=== PATIENT | female | born 1955 | race Two or more races ===

== ENCOUNTER 2019-03-04 01:24 | Inpatient (IN) | payer BC, OTHER ==
[~2019-03-04] VITALS: Ht 160 cm; Wt 67.5 kg
[2019-03-06 07:43] VITALS: BP 157/81
== END 2019-03-06 14:48 | disposition home or self-care (01) | DRG 694 ==
LOC: ED 04:22 → EDIP 04:25 → 3NE 06:40
PROVIDERS: ADMIT Family Medicine; ATTEND Family Medicine
PROC: 0T9B70Z Drainage of Bladder with Drainage Device, Via Natural or Artificial Opening (ICD-10-PCS; principal; 2019-03-04)
DX: N13.2 Hydronephrosis with renal and ureteral calculous obstruction (principal); E78.5 Hyperlipidemia, unspecified; E78.00 Pure hypercholesterolemia, unspecified; K44.9 Diaphragmatic hernia without obstruction or gangrene; K57.90 Diverticulosis of intestine, part unspecified, without perforation or abscess without bleeding; E03.9 Hypothyroidism, unspecified; Z90.710 Acquired absence of both cervix and uterus
CPT/HCPCS: 36415; 74177; 80048; 80053; 81001; 83605; 83690; 84484; 85025; 87086; 96374; 96375; 96376; 99285; G0378; J1885; J2405; Q9967; J2270; J7120